=== PATIENT | female | born 1930 | race Caucasian/White ===

== ENCOUNTER 2017-02-07 09:03 | Emergency (ER) | payer MEDICARE, OTHER ==
[~2017-02-07] VITALS: Ht 162.6 cm; Wt 81.5 kg
[2017-02-07 09:20] VITALS: BP 152/70; PULSE 81; TEMP 98.4; O2SAT 96
[2017-02-07] MEDS ORDERED: AMLO-170 PO (10:06)
[2017-02-07] MEDS ORDERED: TEKT300T PO (10:06)
[2017-02-07] MEDS ORDERED: FAMO1TAB30 PO (10:07)
[2017-02-07] MEDS ORDERED: METO100T PO (10:07)
[2017-02-07] MEDS ORDERED: HYDR-3799 PO (10:07)
[2017-02-07] MEDS ORDERED: ATOR20TA15 PO (10:07)
[2017-02-07 10:16] VITALS: BP 171/92
--- NOTE | 2017-02-07 10:17 | PD ---
HPI Chief Complaint: Hypertension Time Seen by Provider: 09:48 Travel History International Travel<30 days: No Contact w/Intl Traveler<30days: No Traveled to known affect area: No History of Present Illness HPI Patient is a 86-year-old female with a history of high blood pressure presents emergency Department with elevated blood pressure readings at home. Patient states blood pressures and axis of 200 systolic. She states he been taking her medicines as prescribed. She states that she is from [place] the left and since she got her her blood pressures been elevated. Her only physical complaint is she's had a little burning in her lateral frontal areas of her head. Denies any chew headache. Denies any chest pain shortness of breath abdominal pain nausea vomiting diarrhea decreased urine output. Patient's symptoms just started yesterday. She states the last time this happened to her the headache give her a shot to bring down her blood pressure and then discharge her home.. PFSH Past Medical History High Cholesterol: Yes Hypertension: Yes Renal Failure: Yes (STAGE III) Social History Alcohol Use: No Tobacco Use: No Allergies-Medications (Allergen,Severity, Reaction): Coded Allergies: Penicillins (Verified Allergy, Intermediate, RASH, 02/07/17) cefaclor (Verified Allergy, Intermediate, RASH, 02/07/17) cephalexin (Verified Allergy, Intermediate, RASH, 02/07/17) ciprofloxacin (Verified Allergy, Intermediate, RASH, 02/07/17) atorvastatin (Verified Allergy, Unknown, 02/07/17) celecoxib (Verified Allergy, Unknown, 02/07/17) clarithromycin (Verified Allergy, Unknown, 02/07/17) doxycycline (Verified Allergy, Unknown, 02/07/17) erythromycin base (Verified Allergy, Unknown, 02/07/17) hydrochlorothiazide (Verified Allergy, Unknown, 02/07/17) telmisartan (Verified Allergy, Unknown, 02/07/17) valsartan (Verified Allergy, Unknown, 02/07/17) VALSARTAN/HCTZ sulfamethoxazole (Verified Adverse Reaction, Mild, NAUSEA, 02/07/17) trimethoprim (Verified Adverse Reaction, Mild, NAUSEA, 02/07/17) NSAIDS (Non-Steroidal Anti-Inflamma (Verified Adverse Reaction, Unknown, CKD, 02/07/17) Reported Meds & Prescriptions Reported Meds & Active Scripts Active Reported Famotidine 10 Mg Tab 10 Mg PO BID PRN Atorvastatin (Atorvastatin Calcium) 20 Mg Tab 20 Mg PO HS Hydralazine HCl 25 Mg Tablet 25 Mg PO DAILY Metoprolol Tartrate 100 Mg Tab 100 Mg PO BID [place] ([place]isk[place]ren) 300 Mg Tab 300 Mg PO DAILY Amlodipine-Valsartan 5-320 Mg Tab 1 Tab PO DAILY Review of Systems Except as stated in HPI: all other systems reviewed are Neg Physical Exam Narrative GENERAL: Well-developed well-nourished no obvious distress SKIN: Focused skin assessment warm/dry. HEAD: Atraumatic. Normocephalic. EYES: Pupils equal and round. No scleral icterus. No injection or drainage. ENT: No nasal bleeding or discharge. Mucous membranes pink and moist. NECK: Trachea midline. No JVD. CARDIOVASCULAR: Regular rate and rhythm. No murmur appreciated. RESPIRATORY: No accessory muscle use. Clear to auscultation. Breath sounds equal bilaterally. GASTROINTESTINAL: Abdomen soft, non-tender, nondistended. Hepatic and splenic margins not palpable. MUSCULOSKELETAL: No obvious deformities. No clubbing. No cyanosis. No edema. NEUROLOGICAL: Awake and alert. Cranial nerves II through XII are grossly intact and nonfocal, 5 out of 5 strength in all 4 extremity's. PSYCHIATRIC: Appropriate mood and affect; insight and judgment normal. Data Data Last Documented VS Vital Signs Date Time Temp Pulse Resp B/P (MAP) Pulse Ox O2 Delivery O2 Flow Rate FiO2 02/07/17 11:20 161/95 (117) 02/07/17 09:20 98.4 81 96 MDM Medical Decision Making Medical Screen Exam Complete: Yes Emergency Medical Condition: Yes Differential Diagnosis Elevated blood pressure, hypertensive urgency unlikely, hypertensive emergency excluded clinically. Acute intracranial abnormality highly unlikely. Narrative Course Patient roomed emergency department, appears younger than stated age and has healthy parents. Blood pressures actually reasonably controlled in the emergency department, utilizing acep -guidelines there is likely no indication to lower her blood pressure acutely. The patient was offered blood work and CAT scan of her head because she seems somewhat anxious though my clinical opinion there is no indication for either at this time. Patient was reassured and she is comfortable going home at this time, discussed monitoring her blood pressure and following up with her primary care physician when she returns to [place]. Diagnosis Primary Impression: Elevated blood pressure reading Disposition: 01 DISCHARGE HOME Condition: Stable Tereso Rashid MD Feb 07, 2017 10:17
[2017-02-07 11:20] VITALS: BP 161/95
== END 2017-02-07 11:21 | disposition home or self-care (01) ==
LOC: PHED 09:03
DX: I10 Essential (primary) hypertension (principal)
CPT/HCPCS: 99281